=== PATIENT | male | born 1960 | race African-American/Black ===

== ENCOUNTER 2025-01-10 08:55 | Outpatient (CLI) | payer OTHER | END 2025-01-10 08:56 | disposition home or self-care (01) | LOC: CSHCP 08:55 | PROVIDERS: ATTEND Student in an Organized Health Care Education/Training Program | DX: R91.1 Solitary pulmonary nodule (principal); J44.9 Chronic obstructive pulmonary disease, unspecified | CPT/HCPCS: 94060; 94664; 94729; 94760 ==

== ENCOUNTER 2025-01-18 09:29 | Outpatient (CLI) | payer OTHER | END 2025-01-18 09:30 | disposition home or self-care (01) | LOC: CSHCT 09:29 | PROVIDERS: ATTEND Student in an Organized Health Care Education/Training Program | DX: R91.1 Solitary pulmonary nodule (principal); R91.8 Other nonspecific abnormal finding of lung field; S22.41XD Multiple fractures of ribs, right side, subsequent encounter for fracture with routine healing | CPT/HCPCS: 71250 ==